=== PATIENT | female | born 1970 | race Caucasian/White ===

== ENCOUNTER 2021-04-29 06:11 | Day surgery (SDC) | payer OTHER, SELFPAY ==
[2021-04-24 10:24] LABS: BASOPHILS % (AUTO) 0.3 % (0.0-2.0); EOSINOPHILS # (AUTO) 0.1 K/uL (0.0-0.4); EOSINOPHILS % (AUTO) 1.1 % (0.0-4.0); HEMATOCRIT 34.6 % (36-48); HEMOGLOBIN 11.2 g/dL (12.0-16.0); LYMPHOCYTES # (AUTO) 1.6 K/uL (1.0-5.5); LYMPHOCYTES % (AUTO) 22.4 % (20.5-51.5); MEAN CORPUSCULAR HEMOGLOBIN 26 pg (27-31); MEAN CORPUSCULAR HGB CONC 32 % (32-36); MEAN CORPUSCULAR VOLUME 81 fL (79.0-98.0); MONOCYTES # (AUTO) 0.4 K/uL (0.0-1.0); MONOCYTES % (AUTO) 5.6 % (1.7-9.3); NEUTROPHILS % (AUTO) 70.6 % (40.0-70.0); PLATELET COUNT (AUTO) 272 K/uL (130-430); RED BLOOD CELL COUNT(AUTO) 4.26 MIL/uL (4.2-6.2); RED CELL DISTRIBUTION WIDTH 14.8 % (9.0-15.0); WHITE BLOOD COUNT (AUTO) 7.1 K/uL (4.8-10.8)
[~2021-04-29] VITALS: Ht 162.6 cm; Wt 108.9 kg
[2021-04-29] MEDS ORDERED: LIDOCAINE/EPI 1% 1:100000 20 ML VIAL INJ ONE (08:03)
[2021-04-29] MEDS ORDERED: LIDOCAINE 1% 10 MG/ML, 20 ML MDV INJ ONE (08:03)
[2021-04-29] MEDS ORDERED: NS IRRIG SOLN 1000 ML IR ONE (08:03)
[2021-04-29] MEDS ORDERED: LR 1,000 ML IV.SOLN IV ONE (08:03)
[2021-04-29] MEDS ORDERED: PROPOFOL 200MG/ 20ML VIAL (DIPRIVAN) IV ONE (08:03)
[2021-04-29] MEDS ORDERED: fentaNYL CITRATE 250 MCG/5 ML AMP IV ONE (08:03)
[2021-04-29] MEDS ORDERED: MIDAZOLAM HCL 5 MG/5 ML VIAL IVP ONE (08:03)
[2021-04-29] MEDS ORDERED: HYDROmorphone 1 MG/ML INJ. CARTRIDGE IVP PRN ×2 (08:45)
[2021-04-29] MEDS ORDERED: MIDAZOLAM HCL 2 MG/2 ML VIAL (VERSED) IVP PRN (08:45)
[2021-04-29] MEDS ORDERED: MEPERIDINE HCL/PF 25 MG/ML DISP.SYRIN IVP PRN (08:45)
[2021-04-29] MEDS ORDERED: ONDANSETRON HCL 4 MG/2 ML VIAL IVP PRN ×2 (08:45)
[2021-04-29] MEDS ORDERED: LR 1,000 ML IV SCH (08:45)
[2021-04-29 11:21] VITALS: BP_SYST 112
== END 2021-04-29 10:30 | disposition home or self-care (01) ==
LOC: SDS 06:11 → SMU 06:18 → SDS 10:30
PROVIDERS: ATTEND Obstetrics & Gynecology
DX: N90.7 Vulvar cyst (principal); N90.89 Other specified noninflammatory disorders of vulva and perineum; Z20.822 Contact with and (suspected) exposure to COVID-19; Z79.899 Other long term (current) drug therapy
CPT/HCPCS: 11423; 36415 ×2; 84703; 85025; 86886 ×2; 86900 ×2; 86901 ×2; 88305; J2001; J2250; J2704; J3010; J7120; U0003